=== PATIENT | female | born 1985 | race African-American/Black ===

== ENCOUNTER 2016-09-25 03:09 | Emergency (ER) | payer OTHER ==
[~2016-09-25] VITALS: Ht 165.1 cm; Wt 100.0 kg
[2016-09-25 04:28] VITALS: BP 132/72
== END 2016-09-25 04:30 | disposition home or self-care (01) ==
LOC: EMS 03:11
DX: S00.81XA Abrasion of other part of head, initial encounter (principal); S09.90XA Unspecified injury of head, initial encounter; I10 Essential (primary) hypertension; F17.210 Nicotine dependence, cigarettes, uncomplicated; Y04.0XXA Assault by unarmed brawl or fight, initial encounter; Y93.89 Activity, other specified; Y92.89 Other specified places as the place of occurrence of the external cause; Y99.8 Other external cause status
CPT/HCPCS: 70450; 81025; 99284